=== PATIENT | female | born 1945 | race Caucasian/White ===

== ENCOUNTER → 2017-09-05 | Outpatient (CLI) | payer MEDICARE, OTHER ==
[~2017-09-05] MED LIST: ACCUNEB SO1.25 MG/1; ADVAIR 250-501 EACH IH; ALBUTEROL INH; BENZONATATE200 MG PO; CELEBREX 200 M200 MG PO; CENTRUM SILVER1 EAC4 PO; CLONAZEPAM 1 MG1 M1 PO; CLONAZEPAM PO; EFFEXOR XR37.5 MG PO; FIORICET; FIORICET 50-301 EACH PO; FLAX SEED OIL1000 MG PO; FLEXERIL PO; FLONASE 0.05%50 MCG NASAL; GLUCOSAMINE1000 MG PO; IBUPROFEN 400400 M2 PO; LEVOTHYROXINE 0.1 MG PO; LEVOXYL75 MCG PO; MECLIZINE HCL25 M1 PO; MULTIVITAMINS PO; NORCO 5-325 TA1 EACH PO; PEPCID20 MG PO; PEPCID40 MG PO; PERCOCET 5-3251 EACH PO; PREMARIN0.45 MG PO; PREVACID PO; PREVACID30 M2 PO; PREVACID30 MG PO; TESSALON PERLE100 MG PO; TESSALON200 MG PO; TRAMADOL 50 MG50 MG PO; TRILIPIX135 MG PO; TUMERIC PO; VENTOLIN HFA 1818 GM INH; VITAMIN B-12100 MC1; VITAMIN D1000 UNI1 PO; WELCHOL 625 MG625 MG PO; WELCHOL PO; ZOFRAN ODT4 MG PO; ZOFRAN ODT4 MG SUBLING; ZYRTEC10 M2 PO
== END ==
LOC: M.ULTRA 10:00
DX: Z12.31 Encounter for screening mammogram for malignant neoplasm of breast (principal); M79.605 Pain in left leg; I70.8 Atherosclerosis of other arteries; M79.89 Other specified soft tissue disorders

== ENCOUNTER → 2017-11-25 | Outpatient (CLI) | payer MEDICARE, OTHER ==
--- NOTE | 2017-12-02 14:58 | SLEEP ---
[address] [address] SLEEP STUDY REPORT Name: CROW WOODALL Room: [facility]#: [id number] Admission: 11/25/17 Attend Phys: Pedro Laureano Discharge: Date of : 45 Report #: [id number] THIS REPORT FOR: //name// CC: Zari Red DO This study has been reviewed in its entirety by a board certified sleep specialist DATE OF SERVICE: 11/25/2017 ATTENDING PHYSICIAN: Dr. Zari Red. INDICATIONS: The patient is a 71-year-old who weighs 144 pounds with a BMI of 26.3. The patient underwent a diagnostic sleep study at [facility]. During the night study, the patient spent 432 minutes in bed and slept for 290 minutes with a low sleep efficiency of 67%. Sleep latency was prolonged at 47.6 minutes with a REM latency of 112 minutes. Overall sleep architecture showed normal stage 1 sleep, normal stage 2 sleep, increased slow wave and normal REM sleep. During the night study, the patient had 2 central apneas, no mixed or obstructive apneas, and 8 hypopneas. The patient's apnea-hypopnea index for the night of the study was 2.1 per hour with a REM index of 5.7 per hour. No significant supine LEANDRO was observed. EKG monitoring revealed average heart rate of 58 beats per minute, normal sinus rhythm. No sustained arrhythmias were observed. PLMS were seen at the index of 1 per hour and 0.6 per hour caused EEG arousals. Nocturnal oximetry study revealed an average oxygen saturation of 96% with a lowest of 89%. No clinically significant desaturations of less than 89% were observed. Due to low AHI, the patient did not meet the split night criteria for CPAP initiation. IMPRESSION: 1. No clinically significant sleep disordered breathing. The patient's apnea-hypopnea index for the entire night was only 2 per hour. 2. No clinically significant periodic limb movements in sleep. 3. No clinically significant nocturnal hypoxia. RECOMMENDATIONS: [place] [address] SLEEP STUDY REPORT Name: CROW WOODALL Room: [facility]#: [id number] Admission: 11/25/17 Attend Phys: Pedro Laureano Discharge: Date of : 45 Report #: [id number] 1. The patient did not meet the split night criteria for CPAP initiation. 2. Weight loss is advised. 3. 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 <ELECTRONICALLY SIGNED> By: Wayne Payan MD 12/02/17 1458 1844 1938Aharsha Payan MD /nt
== END ==
LOC: M.SLEEPLAB 20:21
DX: G47.00 Insomnia, unspecified (principal); G47.9 Sleep disorder, unspecified; R06.83 Snoring; K21.9 Gastro-esophageal reflux disease without esophagitis; E78.2 Mixed hyperlipidemia; J45.909 Unspecified asthma, uncomplicated; E03.9 Hypothyroidism, unspecified; I25.10 Atherosclerotic heart disease of native coronary artery without angina pectoris; F32.9 Major depressive disorder, single episode, unspecified; M79.7 Fibromyalgia; R53.83 Other fatigue; M25.551 Pain in right hip; M25.552 Pain in left hip; Z82.49 Family history of ischemic heart disease and other diseases of the circulatory system; Z87.891 Personal history of nicotine dependence

== ENCOUNTER → 2018-04-17 | Outpatient (CLI) | payer MEDICARE, OTHER | LOC: M.MRI 16:51 | DX: M47.816 Spondylosis without myelopathy or radiculopathy, lumbar region (principal); M51.27 Other intervertebral disc displacement, lumbosacral region; M48.07 Spinal stenosis, lumbosacral region ==

== ENCOUNTER → 2018-05-12 | Outpatient (CLI) | payer MEDICARE, OTHER | LOC: M.CT 12:52 | DX: N13.30 Unspecified hydronephrosis (principal); Z90.710 Acquired absence of both cervix and uterus; Z90.49 Acquired absence of other specified parts of digestive tract ==

== ENCOUNTER → 2018-07-09 | Outpatient (CLI) | payer MEDICARE, OTHER | LOC: M.NUC 07-07 13:15 | DX: N28.9 Disorder of kidney and ureter, unspecified (principal); N13.39 Other hydronephrosis ==

== ENCOUNTER 2019-04-15 04:55 | Inpatient (IN) | payer MEDICARE, OTHER ==
[~2019-04-15] VITALS: Ht 157.5 cm; Wt 64.9 kg
[2019-04-15 04:58] VITALS: BP 115/64
[2019-04-15 05:20] LABS: HEMATOCRIT 40.7 % (37.0-47.0); HEMOGLOBIN 13.7 gm/dL (12.0-15.0); MCH 28.5 pg (26.0-34.0); MCHC 33.6 g/dL (28.0-37.0); MCV 84.9 fL (80.0-100.0); MPV 8.5 fl. (7.2-11.1); NUCLEATED RBCS 0 /100WBC; PLATELET COUNT* 339 thou/uL (150-400); RDW-CV 13.6 % (10.5-14.5)
[2019-04-15 05:31] LABS: CREATININE 0.9 mg/dL (0.6-1.3); POTASSIUM 3.8 mmol/L (3.5-5.1)
[2019-04-15 05:32] LABS: APTT 22.7 Seconds (25.0-31.3); PROTIME 10.3 Seconds (9.20-11.50)
[2019-04-15 05:37] LABS: INFLUENZA A ANTIGEN Negative (Negative); INFLUENZA B ANTIGEN Negative (Negative)
[2019-04-15 05:41] LABS: ALBUMIN 3.9 g/dL (3.4-5.0); TOTAL BILIRUBIN 0.6 mg/dL (<0.1-1.0); TOTAL PROTEIN 7.4 g/dL (6.4-8.2)
[2019-04-15 05:45] LABS: ABSOLUTE EOSINOPHILS 0.4 thou/uL (0.0-0.7); ABSOLUTE LYMPHOCYTES 0.4 thou/uL (0.8-5.3); ABSOLUTE MONOCYTES 0.2 thou/uL (0.0-1.2); ABSOLUTE NEUTROPHILS 8.1 thou/uL (1.6-8.1); ANISOCYTOSIS 1+; PLATELET ESTIMATE ADEQUATE; POIKILOCYTOSIS 1+
[2019-04-15 07:30] VITALS: BP 133/65
[2019-04-15 07:34] VITALS: BP 120/64
--- NOTE | 2019-04-15 12:37 | EKG ---
[place] [address] ELECTROCARDIOGRAM REPORT Name: CROW WOODALL Room: [address] ADM IN .R.#: [id number] Admission: 04/15/19 Attend Phys: Pedro Yang Discharge: Date of : 45 Report #: [id number] THIS REPORT FOR: //name// [facility] ED Test Date: 2019-04-15 Test Time: 05:20:48 Pat Name: CROW WOODALL Department: Room: [facility] Gender: F Bladder Blower: : 1945 Requested By: Yobani Arizmendi Order Number: [id number] MD: Moris Watt Measurements Intervals [place] Rate: 89 P: 43 TN: 144 QRS: 10 QRSD: 100 T: 50 QT: 392 QTc: 477 Interpretive Statements Sinus rhythm Compared to ECG 08/13/2016 13:11:09 No significant changes Electronically Signed On 04-15-2019 12:36:48 RETAIL MERCHANDISING COORDINATOR by Moris Watt [email or web address] <ELECTRONICALLY SIGNED> By: Moris Watt MD, [facility] 04/15/19 1236 9 9 Moris Watt MD, FACC /EPI
--- NOTE | 2019-04-15 15:37 | NUR ---
PT ADMITTED AROUND 0730 THIS AM. REFER TO ASSESSMENT. DIFFICULT TO MANAGE NAUSEA AND VOMITING THIS SHIFT. NEW ORDER FOR PRN PHENERGEN OBTAINED. EFFECTIVE AT THIS TIME. PT ENCOURAGED TO REMAIN NPO AT THIS TIME WITH ICE CHIPS. IVF INFUSING WITHOUT DIFFICULTY. NO OTHER CONCERNS AT THIS TIME. CLWR. WCTM.
[2019-04-15 16:00] VITALS: BP 135/68
--- NOTE | 2019-04-15 16:20 | NUR ---
RECEIVED REPORT ON PT FROM LIZ. PT RESTING IN ROOM. AGREE WITH PREVIOUS CHARTING. WILL CONTINUE TO MONITOR.
[2019-04-15 21:12] VITALS: BP 118/57
[2019-04-16] VITALS: BP 103/44
[2019-04-16 03:40] VITALS: BP 100/44
[2019-04-16 03:59] LABS: CALCIUM 7.1 mg/dL (8.5-10.1); CREATININE 0.9 mg/dL (0.6-1.3); POTASSIUM 3.4 mmol/L (3.5-5.1)
[2019-04-16 04:00] LABS: ABSOLUTE LYMPHOCYTES 0.7 thou/uL (0.8-5.3); ABSOLUTE MONOCYTES 0.2 thou/uL (0.0-1.2); ABSOLUTE NEUTROPHILS 3.3 thou/uL (1.6-8.1); BASOPHILS 0.7 %; EOSINOPHILS 0.3 %; HEMATOCRIT 33.1 % (37.0-47.0); LYMPHOCYTES 16.2 %; MCH 28.9 pg (26.0-34.0); MCHC 33.9 g/dL (28.0-37.0); MCV 85.2 fL (80.0-100.0); MONOCYTES 4.9 %; MPV 8.8 fl. (7.2-11.1); NUCLEATED RBCS 0 /100WBC; PLATELET COUNT* 293 thou/uL (150-400); POLYS 77.9 %; RBC 3.89 mil/uL (4.20-5.00); RDW-CV 13.6 % (10.5-14.5); WBC 4.3 thou/uL (4.0-11.0)
[2019-04-16 04:01] LABS: HEMOGLOBIN 11.2 gm/dL (12.0-15.0)
--- NOTE | 2019-04-16 05:37 | NUR ---
PATIENT DID HAVE A FEVER 101.8 AT BEDTIME. GAVE HER A DOSE OF TYLENOL 1000MG NEXT TEMP 98.6. BP SOFT. REPORTS HEADACHE EARLIER IN NIGHT. STILL HAS NS @ 100 MLS. ABLE TO AMBULATE TO RESTROOM WITH STANDBY ASSIST. NO REPORTS OF NAUSEA OR VOMITING. PLAN IS TO HYDRATE VIA FLUIDS IV AND TOLERATE CLEAR LIQUID AND MONITOR RENAL FUNCTION. WILL CONTINUE TO FOLLOW PLAN OF CARE.
[2019-04-16 07:55] VITALS: BP 106/56
--- NOTE | 2019-04-16 15:00 | NUR ---
PT.ALERT AND ORIENTED. STATES SHE LIVES WITH HER . FAMILY IS SUPPORTIVE. SHE IS INDEPENDNET AT HOME. NO USE OF DME OR HX OF HH OR SNF. HOPES TO RETURN HOME WITH NO DISCHARGE NEEDS
--- NOTE | 2019-04-16 16:30 | NUR ---
PT A&Ox4. VITALS STABLE. IV PATENT. DENIED N/V ALL OF SHIFT. DENIED PAIN, MILD HEAD ACHE. PT STATED THAT SHE DID NOT WANT TO DISCHARGE AFTER ADVANCING DIET TO SOUP BECAUSE SHE FELT BLOATED AND HAD A STOMACH ACHE. REQUESTED TO ONLY BE CLEAR DIET. UP AD GABRIELLE. CALL LIGHT WITHIN REACH. WILL CONTINUE TO MONITOR.
[2019-04-16 16:38] VITALS: BP 110/56
[2019-04-16 20:09] VITALS: BP 122/53
--- NOTE | 2019-04-17 06:02 | NUR ---
PATIENT HAD 2 LIQUID STOOLS BEFORE BEDTIME SO ISOLATION CART PLACED AND CDIF SAMPLE TO BE COLLECTED. HAS NOT HAD A STOOL SINCE BEFORE BEDTIME. SHE HAS REQUESTED TYLENOL FOR MILD HEADACHE TWICE, OTHER THAN THAT NO OTHER PAIN REPORTED. NO REPORT OF NAUSEA OR VOMITING. STILL ABLE TO AMBULATE TO RESTROOM AND VSS. NO FEVER. ABLE TO TOLERATE SOLID FOOD AND FLUIDS. PLAN TO D/C. WILL CONTINUE TO FOLLOW PLAN OF CARE.
[2019-04-17 08:25] VITALS: BP 127/62
[2019-04-17 11:04] VITALS: BP 127/62
--- NOTE | 2019-04-17 12:23 | NUR ---
PT VSS, TOLERATING DIET AT THIS TIME. PT TO DC TO HOME WITH NO CONCERNS NOTED. NO RX PROVIDED AT TIME OF DC. IV REMOVED INTACT. PT AMBULATED OUT OF UNIT WITH HOSPITAL STAFF WITH STEADY GAIT.
== END 2019-04-17 12:23 | disposition home or self-care (01) | DRG 392 ==
LOC: M.ERS 04:55 → M.ORTHSURG 06:36 → M.TBA-ER 06:36 → M.ORTHSURG 07:54
PROVIDERS: Family Medicine; Internal Medicine; ADMIT Internal Medicine
DX: A08.4 Viral intestinal infection, unspecified (principal); E86.0 Dehydration; E03.9 Hypothyroidism, unspecified; R19.7 Diarrhea, unspecified; J45.909 Unspecified asthma, uncomplicated; M19.90 Unspecified osteoarthritis, unspecified site; Z90.89 Acquired absence of other organs; Z90.49 Acquired absence of other specified parts of digestive tract; Z79.2 Long term (current) use of antibiotics; Z79.899 Other long term (current) drug therapy; Z88.1 Allergy status to other antibiotic agents; Z88.5 Allergy status to narcotic agent; Z88.0 Allergy status to penicillin; Z88.8 Allergy status to other drugs, medicaments and biological substances

== ENCOUNTER → 2019-12-06 | Outpatient (CLI) | payer MEDICARE, OTHER | LOC: M.RAD 11:38 | PROVIDERS: ATTEND Family Medicine | DX: Z12.31 Encounter for screening mammogram for malignant neoplasm of breast (principal) ==

== ENCOUNTER 2020-01-18 07:29 | Emergency (ER) | payer MEDICARE, OTHER ==
[~2020-01-18] VITALS: Ht 157.5 cm; Wt 64.0 kg
[~2020-01-18 07:29] MED LIST changes: -MELOXICAM15 MG PO; -NORCO 5-325 TA1 EAC2 PO
[2020-01-18] MEDS ORDERED: MELOXICAM15 MG PO (09:27)
[2020-01-18 09:42] VITALS: BP 116/51
== END 2020-01-18 09:42 | disposition home or self-care (01) ==
LOC: M.ERS 07:29
DX: S80.01XA Contusion of right knee, initial encounter (principal); J45.909 Unspecified asthma, uncomplicated; M19.90 Unspecified osteoarthritis, unspecified site; Z90.49 Acquired absence of other specified parts of digestive tract; E03.9 Hypothyroidism, unspecified; Z79.899 Other long term (current) drug therapy; Z88.6 Allergy status to analgesic agent; Z88.1 Allergy status to other antibiotic agents; Z88.0 Allergy status to penicillin; Z88.8 Allergy status to other drugs, medicaments and biological substances; W18.31XA Fall on same level due to stepping on an object, initial encounter; Y93.89 Activity, other specified; Y92.89 Other specified places as the place of occurrence of the external cause; Y99.8 Other external cause status

== ENCOUNTER → 2020-01-18 | Outpatient (CLI) | payer MEDICARE, OTHER ==
[~2020-01-18] MED LIST changes: +MELOXICAM15 MG PO; +NORCO 5-325 TA1 EAC2 PO
== END ==
LOC: M.MRI 15:55
PROVIDERS: ATTEND Family Medicine
DX: M47.27 Other spondylosis with radiculopathy, lumbosacral region (principal); M51.17 Intervertebral disc disorders with radiculopathy, lumbosacral region; M48.061 Spinal stenosis, lumbar region without neurogenic claudication

== ENCOUNTER 2020-01-23 12:40 | Emergency (ER) | payer MEDICARE, OTHER ==
[~2020-01-23] VITALS: Ht 157.5 cm; Wt 64.0 kg
[~2020-01-23 12:40] MED LIST changes: +MELOXICAM15 MG PO
[2020-01-23] MEDS ORDERED: NORCO 5-325 TA1 EAC2 PO (14:49)
[2020-01-23] MEDS ORDERED: FLEXERIL PO (14:49)
[2020-01-23 15:03] VITALS: BP 134/56
== END 2020-01-23 15:04 | disposition home or self-care (01) ==
LOC: M.ERS 12:40
DX: S80.02XA Contusion of left knee, initial encounter (principal); E03.9 Hypothyroidism, unspecified; J45.909 Unspecified asthma, uncomplicated; M19.90 Unspecified osteoarthritis, unspecified site; Z90.49 Acquired absence of other specified parts of digestive tract; Z79.899 Other long term (current) drug therapy; Z88.0 Allergy status to penicillin; Z88.1 Allergy status to other antibiotic agents; Z88.6 Allergy status to analgesic agent; W18.39XA Other fall on same level, initial encounter; Y93.89 Activity, other specified; Y92.89 Other specified places as the place of occurrence of the external cause; Y99.8 Other external cause status

== ENCOUNTER → 2020-01-31 | Outpatient (CLI) | payer MEDICARE, OTHER ==
[~2020-01-31] MED LIST changes: +NORCO 5-325 TA1 EAC2 PO
== END ==
LOC: M.MRI 12:01
PROVIDERS: ATTEND Family Medicine
DX: M22.42 Chondromalacia patellae, left knee (principal); M25.362 Other instability, left knee

== ENCOUNTER → 2020-03-06 | Outpatient (CLI) | payer MEDICARE, OTHER | LOC: M.ULTRA 14:06 | PROVIDERS: ATTEND Family Medicine | DX: R35.0 Frequency of micturition (principal) ==

== ENCOUNTER → 2020-07-25 | Outpatient (CLI) | payer MEDICARE, OTHER | LOC: M.RAD 07-17 09:18 | PROVIDERS: ATTEND Nurse Practitioner | DX: R92.1 Mammographic calcification found on diagnostic imaging of breast (principal); N64.4 Mastodynia ==

== ENCOUNTER → 2020-12-08 | Outpatient (CLI) | payer MEDICARE, OTHER | LOC: M.RAD 13:00 | PROVIDERS: ATTEND Family Medicine | DX: Z12.31 Encounter for screening mammogram for malignant neoplasm of breast (principal) ==

== ENCOUNTER → 2021-02-26 | Outpatient (CLI) | payer MEDICARE, OTHER | LOC: M.RAD 09:53 | PROVIDERS: ATTEND Family Medicine | DX: M85.88 Other specified disorders of bone density and structure, other site (principal); M81.0 Age-related osteoporosis without current pathological fracture ==

== ENCOUNTER → 2021-02-26 | Outpatient (CLI) | payer OTHER | LOC: M.CT 09:59 | PROVIDERS: ATTEND Family Medicine | DX: Z13.6 Encounter for screening for cardiovascular disorders (principal); I25.10 Atherosclerotic heart disease of native coronary artery without angina pectoris ==

== ENCOUNTER → 2021-04-03 | Outpatient (CLI) | payer MEDICARE, OTHER ==
--- NOTE | 2021-04-03 12:12 | CARDNUC ---
[place] [address] CARDIAC NUCLEAR IMAGING REPORT Name: CROW WOODALL Room: [facility]#: [id number] Admission: 04/03/21 Attend Phys: Driss Heart, Discharge: Date of : 45 Date of Service: 04/03/21 1211 Report #: [id number] THIS REPORT FOR: cc: Zari Red Linda J. DO Liston, Michael J. MD [facility] ~ APPROVED REPORT Imaging Protocol: Stress Tc-99m/Rest Tc-99m 1 day Study performed: 04/03/2021 08:30:00 Indication: Abnormal EKG Patient Location: [facility] calcium score Stress Nurse: Rosi Claudio RN Ht: 5 ft 2 in Wt: 146 lbs BSA: 1.67 m2 BMI: 26.70 Medical History Medical History: Hyperlipidemia, CAD non obstructive Medications: fenofibrate, welchol Allergies: multiple see list Cardiac Risk Factors: Age, Hyperlipidemia, FHX of CAD, Past Smoker Exercise History: Sedentary Resting Data Rest SPECT myocardial perfusion imaging was performed in supine position 30 minutes following the intravenous injection of 9.4 mCi of Tc-99m Sestamibi. Time of rest injection: 09:15 The images were gated to evaluate regional wall motion and calculate left ventricular ejection fraction. Administration Route: IV Administration Site: Right AC Pharmacologic Stress Pharmacologic stress test was performed by injecting Regadenoson 0.4 mg IV push over 10-15 seconds immediately followed by the intravenous injection of 31.2 mCi of Tc-99m Sestamibi. Time of stress injection: 10:40 Administration Route: IV Administration Site: Right AC Heart Rate at time of stress injection: [address] [place] [address] CARDIAC NUCLEAR IMAGING REPORT Name: CROW WOODALL Room: [facility]#: [id number] Admission: 04/03/21 Attend Phys: Driss Heart, Discharge: Date of : 45 Date of Service: 04/03/21 1211 Report #: [id number] Gated Stress SPECT was performed 45 minutes after stress injection. The images were gated to evaluate regional wall motion and calculate left ventricular ejection fraction. Prone imaging was performed. Stress Test Details Stress Test: Pharmacologic stress testing performed using 0.4 mg of regadenoson per 5 mL given IV over 10 seconds. Reason for pharmacologic stress test: physical limitation. HR Max Heart Rate (APMHR): 145 bpm Resting HR: 71 bpm Target HR (85% APMHR): 123 bpm Max HR Achieved: 92 bpm % of APMHR: 63 Recovery HR: 90 bpm BP Resting BP: 164/67 mmHg Max BP: 151/70 mmHg Recovery BP: 146/70 mmHg ECG Resting ECG: Sinus Rhythm Stress ECG: Sinus Rhythm ST Change: None Arrhythmia: None Recovery ECG: Sinus Rhythm Recovery ST Change: None Recovery Arrhythmia: None Clinical Reason for Termination: Completed protocol The patient tolerated Lexiscan infusion without significant cardiac symptom. Stress ECG Conclusion The baseline twelve-lead EKG shows sinus rhythm without significant ST segment or T wave abnormalities. EKGs obtained during and post Lexiscan infusion show sinus rhythm without significant ST segment changes when compared to baseline. There were no stress-induced arrhythmias. Study Quality Study: Good Artifact: [place] [address] CARDIAC NUCLEAR IMAGING REPORT Name: CROW WOODALL EUFEMIA Room: [facility]#: [id number] Admission: 04/03/21 Attend Phys: Driss Heart, Discharge: Date of : 45 Date of Service: 04/03/21 1211 Report #: [id number] Study Data At rest, the left ventricular ejection fraction was 73%.. Post stress, the left ventricular ejection was 78%.. Perfusion Perfusion images obtained at rest and post Lexiscan stress show uniform uptake of the radioisotope throughout the myocardium. There were no defects to suggest infarct or ischemia. Wall Motion Normal left ventricular wall motion. Nuclear Conclusion ECG Findings: negative for ischemia Clinical Findings: negative for ischemia Nuclear Findings: negative for ischemia Exercise Capacity: not assessed Left Ventricular Function: normal Risk Study: low Perfusion images show no defect to suggest infarct or ischemia. Left ventricular systolic function appears normal on gated studies. This is a low risk study. <Conclusion> The baseline twelve-lead EKG shows sinus rhythm without significant ST segment or T wave abnormalities. EKGs obtained during and post Lexiscan infusion show sinus rhythm without significant ST segment changes when compared to baseline. There were no stress-induced arrhythmias. <ELECTRONICALLY SIGNED> By: Driss Heart MD, FACC 04/03/21 121 10 10 Driss Heart MD, FACC /INF
== END ==
LOC: M.NUC 08:00 → M.CRD 04-12 08:00
PROVIDERS: ATTEND Internal Medicine Cardiovascular Disease
DX: E78.2 Mixed hyperlipidemia (principal); R93.1 Abnormal findings on diagnostic imaging of heart and coronary circulation; R53.83 Other fatigue